=== PATIENT | male | born 1955 | race Caucasian/White ===

== ENCOUNTER 2021-01-04 11:23 | Emergency (ER) | payer BC ==
[~2021-01-04] VITALS: Ht 175.3 cm; Wt 93.9 kg
[2021-01-04 14:34] LABS: RED BLOOD COUNT 4.29 M/UL (4.20-5.50); WHITE BLOOD COUNT 3.9 K/UL (4.5-11.0)
[2021-01-04 14:58] LABS: BUN/CREATININE RATIO 16 (0-10)
[2021-01-04] MEDS ORDERED: PROAIR DIGIHAL90 MCG INH (16:22)
== END 2021-01-04 17:30 | disposition home or self-care (01) ==
LOC: ER1 11:23
PROVIDERS: Nurse Practitioner
DX: U07.1 COVID-19 (principal); J45.909 Unspecified asthma, uncomplicated; Z90.89 Acquired absence of other organs; Z23 Encounter for immunization
CPT/HCPCS: 71045; 80053; 82550; 82553; 83874; 84484; 85025; 93005; 99285; M0243